=== PATIENT | male | born 1955 ===

== ENCOUNTER → 2018-03-07 14:02 | Outpatient (CLI) | payer OTHER, SELFPAY ==
[2018-03-07 14:48] LABS: Add Manual Diff / Slide Review NO; Basophils Percent Auto 0.3 % (0-2); Eosinophils Percent Auto 1.7 % (2-4); Hematocrit 46.2 % (41-53); Hemoglobin 16.2 g/dL (13.5-17.5); Lymphocytes Percent Auto 30.9 % (25-40); Mean Corpuscular HGB Conc 35.1 % (30-36); Mean Corpuscular Hemoglobin 30.8 PG (26-34); Mean Corpuscular Volume 87.7 fL (80-100); Monocytes Percent Auto 9.6 % (3-14); Neutrophils Absolute Auto 4900 /uL (1500-7000); Neutrophils Percent Auto 57.5 % (50-75); Platelet Count 354 X10^3/uL (150-400); Red Blood Cell Count 5.27 X10^6/uL (4.5-5.9); Red Cell Distribution Width 13.4 % (11.6-14.8); White Blood Cell Count 8.5 X10^3/uL (4.5-11.0)
[2018-03-07 14:58] LABS: C-Reactive Protein Quant 0.5 mg/dL (<1.0)
[2018-03-07 15:15] LABS: Erythrocyte Sedimentation Rate 1 MM/HR (0-15)
== END ==
PROVIDERS: PCP Family Medicine; Visit Provider Specialist
DX: M31.6 Other giant cell arteritis (principal)
CPT/HCPCS: 36415; 85025; 85651; 86140; 99215